=== PATIENT | female | born 1990 | race Two or more races ===

== ENCOUNTER 2025-04-17 21:53 | Emergency (ER) | payer BC, MEDICAID, SELFPAY ==
[2025-04-17 21:54] VITALS: BMI 24.2
--- NOTE | 2025-04-17 22:09 | XR_ITS ---
Examination: Wrist, left 3 views Technique: Wrist AP, oblique, lateral 3 views Date and time of exam: April 17, 2025, 1013 hours INDICATIONS: Patient fell today with into the wrist, wrist pain FINDINGS: Acute angulated displaced impacted fracture distal radial metaphysis, up to 6 mm dorsal displacement of the main distal fracture fragment Carpal bones intact IMPRESSION: Acute angulated displaced impacted fracture distal radial metaphysis
--- NOTE | 2025-04-17 22:11 | PC.NURSE ---
ICE PACK AND SLING PLACED ON PT L ARM
[2025-04-17 23:07] VITALS: BP 126/85; PULSE 73; RESP 18; TEMP 36.4; O2SAT 96
[2025-04-17 23:14] VITALS: BP 132/95; PULSE 63; RESP 20; O2SAT 95
--- NOTE | 2025-04-17 23:55 | EDNOTE_ITS ---
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 Denies any other injuries. Denies any past medical history or allergies to medication. Related Data Allergies Allergy/AdvReac Type Severity Reaction Status Date / Time No Known Allergies Allergy Verified 04/17/25 21:58 Review of Systems Review of Systems Systems Reviewed: All systems reviewed, normal except as documented ED Exam Narrative Physical exam: Generally patient is alert no obvious distress, heart regular rate and rhythm, lungs clear to auscultation, abdomen soft nondistended, extremities show no swelling to the dorsal portion of the left wrist. No open wounds. Neurologically left upper extremity is completely intact. Strong distal radial and ulnar pulses. Course Quality Measures none Orders Category Date Time Status XR wrist LT 2V Stat Exams 04/18/25 00:57 Taken XR wrist comp LT min 3V Stat Exams 04/17/25 22:09 Completed Lidocaine 1% 20 ml [Xylocaine 1% 20 ML] Med 04/17/25 23:55 Discontinued 20 ml IM X1 ONE Vital Signs Vital signs: Vital Signs Temperature 97.5 F 04/17/25 23:07 Pulse Rate 73 04/17/25 23:07 Respiratory Rate 18 04/17/25 23:07 Blood Pressure 126/85 H 04/17/25 23:07 Pulse Oximetry (%) 96 04/17/25 23:07 Oxygen Delivery Method Room Air 04/17/25 23:07 Extremity Injury MDM Narrative MDM Narrative:: Scribe Attestation: Janett Junior, nano scribing for and in the presence of Dr. Edouard. Provider Notation: Although this document has been carefully reviewed, there may still be some phonetic and other typographical errors. These errors are purely grammatical due to imperfections in the software program and should not be construed in any way to compromise the substance of the patient's medical care during this visit. Hematoma block was performed here in the emergency room using 1% lidocaine to the left distal radius after x-rays came back showing a posterior angulated dis rosales radius fracture. Using anterior force and traction and attempts to reduce the angulated distal radial fragment was only partially successful. There is still angulation. The left wrist was placed in a sugar-tong splint supervised by myself with post splint application neurovascular check being normal. Patient did not require pain medication here in the emergency room because the hematoma block with the lidocaine was quite successful. I do not have orthopedic surgery on-call. Patient must follow-up with her primary care physician for orthopedic referral for further reduction of the distal radius fracture with posterior angulation. Patient data External records reviewed:: [facility] previous records (No prior ED records available for review) Clinical information provided by:: patient Social determinants that could affect healthcare access:: none Patient has the following chronic illnesses:: None reported How is presenting disease/condition affected by chronic disease/condition?: no chronic disease Evaluation data The following diagnostics were reviewed and interpreted by me:: radiology exam(s) Lab and/or radiology exams considered but not ordered:: None Interpretation Summary: RADIOLOGY Left Wrist X-Ray: FINDINGS: Acute angulated displaced impacted fracture distal radial metaphysis, up to 6 mm dorsal displacement of the main distal fracture fragment Carpal bones intact IMPRESSION: Acute angulated displaced impacted fracture distal radial metaphysis Medications / Prescriptions Medications or Prescriptions considered but not ordered:: None Medication administrations:: Medication Administration History Discontinued Medications Lidocaine HCl (Lidocaine Hcl 1% 20 Ml Vial) 20 ml IM X1 ONE Stop: 04/17/25 23:56 See above if any Consultations Consultation(s) initiated? (list below): No Diagnosis Upper Extremity Injury Differential Diagnosis: sprain and strain of wrist, fracture of wrist and fracture of hand Most likely diagnosis given after review of the tests above:: None Admission Indicated Admission indicated?: not indicated Explain why admission is indicated or not indicated:: Patient does not meet admission criteria Admission Request Was there a request for admission?: No Disposition Plan Disposition Plan: Discharge Discharge Attestation Discharge Attestation: The patient and all family members were given an opportunity to ask questions an d understood the discharge instructions. Discharge instructions specifically effects, indications for sooner follow up or return to the emergency department, and the expected course of current diagnosis. Patient condition: Stable Discharge Plan Plan Patient Disposition: HOME (Self Care) Prescriptions/Referrals Referrals: No Primary/Family,Physician [Primary Care Provider] - In 1 week Problem List Clinical Impression: Distal radius fracture, left Patient/Caregiver Discharge Instructions Additional Instructions: You must follow-up with your regular doctor within 1 to 2 weeks for orthopedic referral for further treatment. Keep the splint on clean and dry. You may take Tylenol and/or ibuprofen as needed for pain. Print Language: Irish Stand Alone Forms: [employer] Award Info., Patient Portal Info Letter
[2025-04-18 00:13] VITALS: BP 119/72; PULSE 90; RESP 19; TEMP 36.8; O2SAT 98
--- NOTE | 2025-04-18 00:57 | XR_ITS ---
EXAMINATION: AP lateral left wrist 2 views TECHNIQUE: 1. AP lateral left wrist 2 views Date and time: April 18, 2025, 0102 hours, comparison April 17, 2025 10:13 p.m. INDICATIONS: Angulated displaced fracture, acute distal radius, post reduction films FINDINGS: Acute fracture distal radial metaphysis, intra-articular Slightly less dorsal angulation at the distal articulating surface of the radius The on the lateral view there remains 6 mm posterior displacement of the main distal fracture fragment IMPRESSION: On the lateral view there remains 6 mm posterior displacement of the main distal radial fracture fragment
[2025-04-18] MEDS: LIDOCAINE HCL 1% 20 ML VIAL IM (01:00)
[2025-04-18 01:34] VITALS: BP 113/63; PULSE 77; RESP 18; TEMP 36.8; O2SAT 98
== END 2025-04-18 01:35 | disposition home or self-care (01) ==
PROVIDERS: Emergency Provider Emergency Medicine
DX: S52.502D Unspecified fracture of the lower end of left radius, subsequent encounter for closed fracture with routine healing (principal); W19.XXXA Unspecified fall, initial encounter; Y92.009 Unspecified place in unspecified non-institutional (private) residence as the place of occurrence of the external cause
CPT/HCPCS: 29125; 73100; 73110; 99283; J3490